=== PATIENT | male | born 1975 | race Caucasian/White ===

== ENCOUNTER 2016-08-21 01:50 | Inpatient (IN) | payer OTHER ==
[~2016-08-21] VITALS: Ht 177.8 cm; Wt 109.8 kg
[2016-08-21 03:36] LABS: RED BLOOD COUNT 5.01 M/UL (4.20-5.50); WHITE BLOOD COUNT 8.9 K/UL (4.5-11.0)
[2016-08-21 04:00] LABS: BUN/CREATININE RATIO 24 (0-10)
[2016-08-21] MEDS ORDERED: IBUPROFEN800 MG PO (11:47)
[2016-08-21] MEDS ORDERED: NEURONTIN 400400 MG PO (11:47)
[2016-08-21] MEDS ORDERED: TRAMADOL HCL50 MG PO (11:51)
[2016-08-21] MEDS ORDERED: GLUCOPHAGE 500500 MG PO (11:52)
[2016-08-21] MEDS ORDERED: LISINOPRIL20 MG PO (11:52)
[2016-08-21] MEDS ORDERED: LOPID TAB 600600 MG PO (11:53)
[2016-08-22 05:38] LABS: HEMOGLOBIN 14.1 gm/dl (14.0-17.5); WHITE BLOOD COUNT 7.6 K/UL (4.5-11.0)
[2016-08-22 05:39] LABS: RED BLOOD COUNT 4.5 M/UL (4.20-5.50)
[2016-08-22 05:55] LABS: BUN/CREATININE RATIO 25 (0-10)
[2016-08-23] MEDS ORDERED: LIBRIUM CAP 1010 MG PO ×2 (11:02→13:01)
[2016-08-23] MEDS ORDERED: PROTONIX40 MG PO (13:00)
[2016-08-23] MEDS ORDERED: TRICOR145 MG PO (13:01)
[2016-08-23] MEDS ORDERED: NEURONTIN 300300 MG PO (13:02)
[2016-10-31] MEDS ORDERED: GABAPENTIN300 MG PO (21:19)
[2016-10-31] MEDS ORDERED: LOPID TAB 600600 MG PO (21:21)
[2016-10-31] MEDS ORDERED: IBUPROFEN800 MG PO (21:22)
[2016-10-31] MEDS ORDERED: BASAGLAR SQ (21:25)
[2016-10-31] MEDS ORDERED: GLUCOTROL 10 MG10 MG PO (21:26)
[2016-10-31] MEDS ORDERED: JARDIANCE25 MG PO (21:26)
[2016-11-01] MEDS ORDERED: LEVEMIR100 UNIT/1 SQ (11:02)
[2016-11-01] MEDS ORDERED: MULTIVITAMINS1 EAC2 PO (11:02)
[2016-11-01] MEDS ORDERED: HABITROL 21 MG P1 EA TD (11:02)
[2016-11-01] MEDS ORDERED: LIORESAL TAB 1010 MG PO (11:02)
[2016-11-01] MEDS ORDERED: NEURONTIN 400400 MG PO (11:06)
== END 2016-08-23 13:41 | disposition home or self-care (01) | DRG 439 ==
LOC: ER1 01:50 → ZEROF 08:47 → M/S 11:16
PROVIDERS: Family Medicine; ADMIT Hospitalist
DX: K85.90 Acute pancreatitis without necrosis or infection, unspecified (principal); E87.1 Hypo-osmolality and hyponatremia; E87.2 Acidosis; E11.65 Type 2 diabetes mellitus with hyperglycemia; F10.10 Alcohol abuse, uncomplicated; I10 Essential (primary) hypertension; E78.5 Hyperlipidemia, unspecified; R74.0 Nonspecific elevation of levels of transaminase and lactic acid dehydrogenase [LDH]; K76.0 Fatty (change of) liver, not elsewhere classified; K82.9 Disease of gallbladder, unspecified; G89.29 Other chronic pain; M54.9 Dorsalgia, unspecified; F17.200 Nicotine dependence, unspecified, uncomplicated; Z87.11 Personal history of peptic ulcer disease; Z79.84 Long term (current) use of oral hypoglycemic drugs; Z79.1 Long term (current) use of non-steroidal anti-inflammatories (NSAID); Z79.899 Other long term (current) drug therapy; Z88.8 Allergy status to other drugs, medicaments and biological substances; Z80.3 Family history of malignant neoplasm of breast; Z83.3 Family history of diabetes mellitus
CPT/HCPCS: 36415; 72040; 76705; 80053; 80061; 81001; 82150; 82962; 83036; 83690; 83735; 85025; 85027; 96374; 96375; 99285; C9113; J1885; J2060; J2270; J2405; J7030; J7050; Q9962

== ENCOUNTER 2020-05-20 11:27 | Emergency (ER) | payer OTHER ==
[~2020-05-20 11:27] MED LIST: 3 IN 1 COMMODE XX; BASAGLAR SQ; D3-5050000 UNIT PO; GABAPENTIN300 MG PO; GABAPENTIN400 MG PO; GLUCOPHAGE 500500 MG PO; GLUCOPHAGE XR500 MG PO; GLUCOTROL 10 MG10 MG PO; HABITROL 21 MG P1 EA TD; IBUPROFEN800 MG PO; JARDIANCE25 MG PO; LEVEMIR100 UNIT/1 SQ; LIBRIUM CAP 1010 MG PO; LIORESAL TAB 1010 MG PO; LIPITOR TAB 2020 MG PO; LISINOPRIL20 MG PO; LOPID TAB 600600 MG PO; MULTIVITAMINS1 EAC2 PO; NEURONTIN 300300 MG PO; NEURONTIN 400400 MG PO; NOVOLOG100 UNIT/1 SQ; OMEPRAZOLE40 MG PO; PRINIVIL20 MG PO; PROTONIX40 MG PO; RESPIMAT; TRAMADOL HCL50 MG PO; TRESIBA FL100 UNIT/1 SQ; TRICOR145 MG PO; ULTRAM50 MG PO; VENTOLIN HFA 66.7 GM INH; VITAMIN B PO
[2020-05-20] MEDS ORDERED: MEDROL DOSEPAK 24 MG PO (14:17)
[2020-05-20] MEDS ORDERED: CYCLOBENZAPRINE10 MG PO (14:17)
== END 2020-05-20 14:35 | disposition home or self-care (01) ==
LOC: ER1 11:27
DX: M50.10 Cervical disc disorder with radiculopathy, unspecified cervical region (principal); I10 Essential (primary) hypertension; F17.210 Nicotine dependence, cigarettes, uncomplicated; E10.9 Type 1 diabetes mellitus without complications
CPT/HCPCS: 96372; 99283; J1100; J1885

== ENCOUNTER 2020-10-30 16:25 | Emergency (ER) | payer OTHER ==
[~2020-10-30 16:25] MED LIST changes: +CYCLOBENZAPRINE10 MG PO; +MEDROL DOSEPAK 24 MG PO
[2020-10-30 19:02] LABS: HEMOGLOBIN 15.2 gm/dl (14.0-17.5); RED BLOOD COUNT 5.02 M/UL (4.20-5.50); WHITE BLOOD COUNT 8.7 K/UL (4.5-11.0)
[2020-10-30 19:22] LABS: BUN/CREATININE RATIO 12 (0-10)
[2020-10-30] MEDS ORDERED: FLOMAX 0.4 MG0.4 MG PO (21:41)
[2020-10-30] MEDS ORDERED: ZOFRAN4 MG PO (21:41)
[2020-10-30] MEDS ORDERED: KETOROLAC TROME10 MG PO (21:41)
== END 2020-10-30 22:10 | disposition home or self-care (01) ==
LOC: ER1 16:25
PROVIDERS: Emergency Medicine
DX: N13.2 Hydronephrosis with renal and ureteral calculous obstruction (principal); E78.5 Hyperlipidemia, unspecified; E11.9 Type 2 diabetes mellitus without complications; I10 Essential (primary) hypertension; Z87.442 Personal history of urinary calculi; F17.200 Nicotine dependence, unspecified, uncomplicated
CPT/HCPCS: 80053; 81001; 83690; 85025; 96374; 96375; 99284; J1885; J2270; J2405

== ENCOUNTER → 2021-01-09 | Outpatient (CLI) | payer OTHER ==
[~2021-01-09] MED LIST changes: +FLOMAX 0.4 MG0.4 MG PO; +KETOROLAC TROME10 MG PO; +ZOFRAN4 MG PO
== END ==
LOC: KOH-I 13:19
DX: M50.10 Cervical disc disorder with radiculopathy, unspecified cervical region (principal); M51.87 Other intervertebral disc disorders, lumbosacral region; M47.22 Other spondylosis with radiculopathy, cervical region
CPT/HCPCS: 72141

== ENCOUNTER → 2021-05-24 | Outpatient (CLI) | payer MEDICARE, OTHER | LOC: RAD 16:15 | DX: M54.50 Low back pain, unspecified (principal); M54.6 Pain in thoracic spine | CPT/HCPCS: 72072; 72110 ==

== ENCOUNTER 2021-08-18 16:06 | Emergency (ER) | payer MEDICARE, OTHER ==
[2021-08-18] MEDS ORDERED: IBUPROFEN600 MG PO (17:52)
[2021-08-18] MEDS ORDERED: CYCLOBENZAPRINE10 MG PO (17:52)
== END 2021-08-18 18:00 | disposition home or self-care (01) ==
LOC: ER1 16:06
DX: M25.512 Pain in left shoulder (principal); J44.9 Chronic obstructive pulmonary disease, unspecified; F17.210 Nicotine dependence, cigarettes, uncomplicated
CPT/HCPCS: 73030; 96372; 99283; J1885